=== PATIENT | male | born 1985 | race Hispanic/Latino ===

== ENCOUNTER 2024-08-02 16:47 | Outpatient (CLI) | payer SELFPAY ==
--- NOTE | ~2024-08-02 | XR_ITS ---
Cervical Spine: AP, lateral, open-mouth views Clinical History: Pain Findings: There is straightening of the normal cervical lordosis. The vertebral bodies and posterior elements appear intact. The intervertebral disc spaces are well maintained. Pre-vertebral soft tiss ues are unremarkable. Impression: Straightening of the normal cervical lordosis. Reviewed, dictated and finalized at location . Impression: Straightening of the normal cervical lordosis.
--- NOTE | ~2024-08-02 | XR_ITS ---
Lumbosacral Spine: AP and lateral views Clinical History: Pain Findings: The normal lordotic curve is maintained. The vertebral bodies and posterior elements are i ntact. The intervertebral disc spaces are preserved. There is mild to moderate facet arthropathy in the lumbar spine. The sacroiliac joints are normally outlined. Impression: Mild to moderate facet arthropathy at the lumbar spine. Reviewed, dictated and finalized at location . Impression: Mild to moderate facet arthropathy at the lumbar spine.
== END 2024-08-02 16:48 | disposition home or self-care (01) ==
DX: M54.13 Radiculopathy, cervicothoracic region (principal)
CPT/HCPCS: 72040; 72100